=== PATIENT | male | born 1980 | race Caucasian/White ===

== ENCOUNTER 2020-02-29 | Emergency (ER) | payer OTHER, SELFPAY ==
[2020-02-28 23:55] VITALS: BP 132/91; PULSE 85; RESP 18; TEMP 36.8; O2SAT 97
--- NOTE | ~2020-02-29 | CT_ITS ---
EXAMINATION: CT brain wo con DATE: 02/29/2020 00:47 INDICATION: Headache, nausea and vomiting. TECHNIQUE: Computed tomography (CT) of the head was performed without intravenous contrast. Sagittal and coronal reconstructions were performed. The mA was adjusted according to patient size. Iterative reconstruction technique was employed. The dose-length product was 681.00 mGy-cm. COMPARISON: head CT dated 12/28/2014 FINDINGS: Chronic scarring the left frontal scalp. No acute intracranial hemorrhage, acute infarction or abnorm al extra axial fluid collection. Ventricles are normal and symmetric. No mass/mass effect. Mucosal th ickening in the right ethmoid sinus. The orbits and mastoid air cells are normal. IMPRESSION: 1. No acute intracranial process. Reviewed, dictated and finalized at location A.
--- NOTE | 2020-02-29 00:10 | PC.NURSE ---
Patient mentioned that he had been stuck by a pedro nail several weeks ago. Right hand between 1st and 2nd finger has small scab-no redness or tenderness at site noted. Dr Day made aware
--- NOTE | 2020-02-29 00:25 | ED.HA ---
HPI - Headache General Chief Complaint: Headache Stated Complaint: headache/ n/v/ spasms History of Present Illness HPI Narrative: Patient presents with his small daughter for a headache for 5 days. He gauges it at 10 out of 10. He says he has been vomiting. 2 weeks ago he had a nail stuck between his second and third fingers of the right hand. On today he had several beers according to the nurse. He had an unresponsive episode for EMS. They started him on some glucose. MD elicited complaint: headache Pertinent past history: recent trauma Onset (ago): day(s) Onset description: gradually Location: occipital Severity: severe Related Data Home Medications Medication Instructions Recorded Confirmed No Home Medications 02/29/20 02/29/20 Allergies Allergy/AdvReac Type Severity Reaction Status Date / Time No Known Drug Allergies Allergy Unknown Verified 09/24/19 09:45 Course Reevaluation(s) Reevaluation #1: Went in to check on the patient. His daughter is awake. He said the medications have not helped his headache at all. I told him I was concerned about possible tetanus, and that he would have to find placement for his daughter to be admitted to the hospital. Date: 02/29/20 Time: 01:25 Consultations Consultation #1: Called [facility] access line and talk to the ICU attending. They will call back with the possibility of bed placement. Date: 02/29/20 Time: 02:29 Consultation #2: [facility] access nurse called back and said that Dr. Dean accepts to the ICU. Date: 02/29/20 Time: 04:25 Vital Signs Vital signs: Vital Signs Temperature 98.2 F 02/28/20 23:55 Pulse Rate 85 02/28/20 23:55 Respiratory Rate 18 02/28/20 23:55 Blood Pressure 132/91 H 02/28/20 23:55 Pulse Oximetry 97 02/28/20 23:55 Temperature 98.2 F 02/29/20 05:20 Pulse Rate 58 L 02/29/20 05:20 Respiratory Rate 18 02/29/20 05:20 Blood Pressure 119/68 02/29/20 05:20 Pulse Oximetry 96 02/29/20 05:20 MDM - Headache Lab Data Result diagrams: 02/29/20 00:32 02/29/20 00:32 Labs: Lab Results 02/29/20 02/29/20 02/29/20 Range/Units 00:32 00:32 00:32 WBC 11.1 H (4.5-10.0) K/mm3 RBC 4.77 (4.6-6.20) M/mm3 Hgb 15.9 (14.0-18.0) g/dL Hct 44.8 (42.0-52.0) % MCV 93.9 (80-100) fl MCH 33.3 (26-34) pg MCHC 35.5 (32-36) g/dl RDW 12.3 (11.5-14.5) % Plt Count 263 (150-375) k/mm3 MPV 11.0 H (7.4-10.4) fl Immature Gran % (Auto) 0.5 (0-0.5) % Neut % (Auto) 61.0 (45.5-73.1) % Lymph % (Auto) 24.8 (18.3-44.2) % Preston % (Auto) 9.8 H (2.6-8.5) % Eos % (Auto) 3.4 (0-4.4) % Baso % (Auto) 0.5 (0.2-1.2) % Lymph # (Auto) 2.75 (0.9-3.2) K/mm3 Preston # (Auto) 1.1 H (0.1-0.6) K/mm3 Eos # (Auto) 0.4 H (0-0.3) K/mm3 Baso # (Auto) 0.1 (0.0-0.1) K/mm3 Abs Immat Gran (auto) 0.05 H (0.00-0.031) K/mm3 Absolute Neuts (auto) 6.8 H (1.3-6.7) K/mm3 Absolute Nucleated RBC 0.0 (0.0-0.012) K/mm3 Nucleated RBC % 0.0 (0.0-0.2) % Sodium 134 L (137-145) mmol/L Potassium 4.4 (3.4-5.0) mmol/L Chloride 103 (98-107) mmol/L Carbon Dioxide 23 (22-30) mmol/L Anion Gap 8 (8-16) mmol/L BUN 13 (9-20) mg/dL Creatinine 0.80 (0.7-1.3) mg/dL Estim Creat Clear Calc 138 ml/min Estimated GFR > 60 (59 - ) Glucose 89 (75-110) mg/dL Calcium 8.7 (8.4-10.2) mg/dL Magnesium 1.8 (1.6-2.3) mg/dL Total Bilirubin 0.3 (0.2-1.3) mg/dL AST 32 (17-59) U/L ALT 34 (4-50) U/L Alkaline Phosphatase 55 (38-126) U/L Total Creatine Kinase (55-170) U/L Total Protein 7.0 (6.3-8.2) g/dL Albumin 4.2 (3.5-5.1) g/dL Urine Opiates Screen (Negative) Urine Methadone Screen (Negative) Ur Barbiturates Screen (Negative) Ur Phencyclidine Scrn (Negative) Ur Amphetamine Screen (Negative) U Benzodiazepines Scrn (Negative) Urine Cocaine Screen
[2020-02-29 00:46] LABS: Basophils Absolute Auto 0.1 K/mm3 (0.0-0.1); Basophils Percent Auto 0.5 % (0.2-1.2); Eosinophils Absolute Auto 0.4 K/mm3 (0-0.3); Eosinophils Percent Auto 3.4 % (0-4.4); Hematocrit 44.8 % (42.0-52.0); Hemoglobin 15.9 g/dL (14.0-18.0); Immature Granulocyte Absolute 0.05 K/mm3 (0.00-0.031); Immature Granulocyte Percent A 0.5 % (0-0.5); Lymphocytes Absolute Auto 2.75 K/mm3 (0.9-3.2); Lymphocytes Percent Auto 24.8 % (18.3-44.2); Mean Corpuscular HGB Conc 35.5 g/dl (32-36); Mean Corpuscular Hemoglobin 33.3 pg (26-34); Mean Corpuscular Volume 93.9 fl (80-100); Monocytes Absolute Auto 1.1 K/mm3 (0.1-0.6); Monocytes Percent Auto 9.8 % (2.6-8.5); Neutrophils Absolute Auto 6.8 K/mm3 (1.3-6.7); Platelet Count Result 263 k/mm3 (150-375); Red Blood Count 4.77 M/mm3 (4.6-6.20); Red Cell Distribution Width 12.3 % (11.5-14.5); White Blood Count 11.1 K/mm3 (4.5-10.0)
[2020-02-29] MEDS: SODIUM CHLORIDE 0.9% IV 1,000 ML 999 ML IV CONT ×2 (00:46→02:10)
[2020-02-29] MEDS: METOCLOPRAMIDE HCL INJ 10 MG/2 ML VIAL IV PUSH (00:46)
[2020-02-29] MEDS: diphenhydrAMINE HCl INJ 50 MG/ML VIAL 25 MG IV PUSH (00:53)
[2020-02-29] MEDS: TETANUS,DIPHTHERIA,AC PERTUSSIS ADULT (0.5 ML) BOOSTRIX IM (00:55)
[2020-02-29 00:56] VITALS: BP 142/99; PULSE 79; RESP 17; O2SAT 100
[2020-02-29 00:58] LABS: Alanine Aminotransferase 34 U/L (4-50); Albumin Level 4.2 g/dL (3.5-5.1); Alkaline Phosphatase 55 U/L (38-126); Anion Gap 8 mmol/L (8-16); Aspartate Amino Transferase 32 U/L (17-59); Bilirubin,Total 0.3 mg/dL (0.2-1.3); Blood Urea Nitrogen 13 mg/dL (9-20); Calcium 8.7 mg/dL (8.4-10.2); Carbon Dioxide 23 mmol/L (22-30); Chloride 103 mmol/L (98-107); Estimated CRCL calculation 138 ml/min; Estimated Glomerular Filt Rate > 60; Glucose 89 mg/dL (75-110); Magnesium 1.8 mg/dL (1.6-2.3); Potassium 4.4 mmol/L (3.4-5.0); Sodium 134 mmol/L (137-145)
[2020-02-29 01:01] LABS: Ethanol < 10 mg/dL (<10)
[2020-02-29] MEDS: methocarbamoL 750 MG TABLET PO (02:08)
[2020-02-29] MEDS: KETOROLAC 15 MG/ML VIAL (*BKC) IV PUSH (02:10)
[2020-02-29 02:16] LABS: Creatine Kinase 65 U/L (55-170)
[2020-02-29 02:50] LABS: Amphetamine Screen Urine Negative (Negative); Barbiturate Screen Urine Negative (Negative); Benzodiazepines Screen Urine Negative (Negative); Cannabinoid Screen Urine Negative (Negative); Cocaine Screen Urine Negative (Negative); Methadone Screen Urine Negative (Negative); Opiate Screen Urine Negative (Negative); Phencyclidine Screen Urine Negative (Negative)
[2020-02-29 03:00] VITALS: BP 114/79; PULSE 63; RESP 16; O2SAT 97
[2020-02-29 04:00] VITALS: BP 106/67; PULSE 62; RESP 14; O2SAT 96
--- NOTE | 2020-02-29 04:08 | PC.NURSE ---
Spoke with Kandace at transfer center
[2020-02-29 05:20] VITALS: BP 119/68; PULSE 58; RESP 18; TEMP 36.8; O2SAT 96
== END 2020-02-29 05:25 | disposition short-term general hospital (02) ==
PROVIDERS: Emergency Provider Emergency Medicine
DX: A35 Other tetanus (principal); R51 Headache; M62.838 Other muscle spasm; Z23 Encounter for immunization
CPT/HCPCS: 36415; 70450; 80053; 80307; 82550; 83735; 85025; 86648; 86774; 90471; 90715; 96361; 96365; 96375; 99285; A9270; J1200; J1885; J2540; J2765; J7030

== ENCOUNTER 2020-03-06 09:21 | Emergency (ER) | payer OTHER, SELFPAY ==
--- NOTE | ~2020-03-06 | XR_ITS ---
EXAMINATION: XR chest 1V portable DATE: 03/06/2020 10:40 INDICATION: Shortness of breath. TECHNIQUE: A single frontal view of the chest was obtained. COMPARISON: Chest 2 views 10/04/2016, CT abdomen and pelvis 09/17/2015 FINDINGS: The chest demonstrates clear lungs without pneumonia, pleural effusion, or pneumothorax. Th e heart size is normal. IMPRESSION: 1. No acute cardiopulmonary disease. Reviewed, dictated and finalized at location A.
[2020-03-06 09:31] VITALS: BP 138/93; PULSE 79; RESP 20; TEMP 36.8; O2SAT 97
[2020-03-06 09:41] VITALS: O2SAT 97
--- NOTE | 2020-03-06 10:20 | ECG_ITS ---
Measurements Intervals [place] Rate: 79 P: 6 GA: 139 QRS: 10 QRSD: 106 T: 47 QT: 373 QTc: 430 Interpretive Statements SINUS RHYTHM BASELINE ARTIFACT- III, AVF NORMAL ECG Electronically Signed On 03-06-2020 12:44:27 CDT by Robert Greenfield D.O.
--- NOTE | 2020-03-06 10:36 | ED.SOB ---
HPI - SOB/Dyspnea General Chief Complaint: Shortness of Breath/Dyspnea <Emily Cintron PA-C - Last Filed: 03/06/20 14:32> Stated Complaint: Tetnus Throat swelling SOB <KEELEY Villalpando Last Filed: 03/06/20 14:32> Time Seen by Provider: 03/06/20 10:07 <KEELEY Villalpando Last Filed: 03/06/20 14:32> Source: patient <KEELEY Villalpando Last Filed: 03/06/20 14:32> Mode of arrival: ambulatory <KEELEY Villalpando Last Filed: 03/06/20 14:32> Limitations: no limitations <KEELEY Villalpando Last Filed: 03/06/20 14:32> History of Present Illness HPI Narrative: This is a 39-year-old male that presents the emergency department for shortness of breath. Reports he was recently diagnosed with tetanus infection after sustaining a wound on his right hand. Reports he was in the ICU at [facility] for 1 week. He is mostly having headaches and muscle spasms. Reports over the last couple of days he has started to become short of breath. Reports pain with deep breathing. Denies fever, cough, congestion, or sore throat. <KEELEY Villalpando Last Filed: 03/06/20 14:32> Related Data Home Medications: Home Medications Medication Instructions Recorded Confirmed lorazepam See Rx Instructions .ROUTE .COMPLEX 03/06/20 metronidazole [Flagyl] 500 mg PO Q8H 03/06/20 <KEELEY Villalpando Last Filed: 03/06/20 14:32> Allergies/Adverse Reactions: Allergies Allergy/AdvReac Type Severity Reaction Status Date / Time morphine Allergy Anaphylaxis Verified 03/06/20 09:38 <KEELEY Villalpando Last Filed: 03/06/20 14:32> Review of Systems Review of Systems: Narrative: CONSTITUTIONAL: Denies fever ENT: Denies rhinorrhea, congestion, sore throat CARDIOVASCULAR: Reports chest pain. Denies edema. RESPIRATORY: Reports dyspnea. Denies cough GASTROINTESTINAL: Denies abdominal pain GENITOURINARY: Denies dysuria MUSCULOSKELETAL: Reports myalgia. <Emily Cintron PA-C - Last Filed: 03/06/20 14:32> All systems reviewed & are unremarkable except as noted in HPI and below <Emily Cintron PA-C - Last Filed: 03/06/20 14:32> PMFSH Past Medical History Medical History: Medical History (Updated 03/06/20 @ 14:32 by Emily Cintron PA-C) History of tetanus <Emily Cintron PA-C - Last Filed: 03/06/20 14:32> Surgical History Surgical History: Surgical History (Updated 03/06/20 @ 10:39 by Emily Cintron PA-C) History of appendectomy <Emily Cintron PA-C - Last Filed: 03/06/20 14:32> Social History Social History: Social History (Updated 03/06/20 @ 10:40 by Emily Cintron PA-C) Gender identity (if verbalized by the patient): Male <Emily Cintron PA-C - Last Filed: 03/06/20 14:32> Exam Narrative: Exam Narrative: GENERAL: Well-appearing, well-nourished, and in no acute distress. HEAD: Normocephalic, atraumatic. EYES: PERRLA and EOMI. ENT: Nares clear, no rhinorrhea or epistaxis. Mucous membranes moist. Oropharynx without tonsillar hypertrophy exudate or other lesions. Bilateral TMs pearly cooney non-bulging NECK: Supple. No adenopathy or masses. CHEST: Clear to auscultation. No respiratory distress. No wheezes rales or rhonchi HEART: Regular rate and rhythm. No murmur heard. Normal peripheral pulses. EXTREMITIES: Normal range of motion. No edema. SKIN: Warm, dry, no rash. NEURO: No focal deficits. Alert and oriented x3. CN II-XII grossly intact PSYCH: Normal mood and affect <Emily Cintron PA-C - Last Filed: 03/06/20 14:32> Course Vital Signs Vital signs: Vital Signs Temperature 98.2 F 03/06/20 09:31 Pulse Rate 79 03/06/20 09:31 Respiratory Rate 20 03/06/20 09:31 Blood Pressure 138/93 H 03/06/20 09:31 Pulse Oximetry 97 03/06/20 09:31 Temperature 98.2 F 03/06/20 09:31 Pulse Rate 76 03/06/20 15:36 Respiratory Rate 18 03/06/20 15:36 Blood Pressure 160/88 H 03/06/20 15:36 Pulse Oxim
[2020-03-06 11:40] LABS: Basophils Absolute Auto 0.1 K/mm3 (0.0-0.1); Basophils Percent Auto 0.6 % (0.2-1.2); Eosinophils Absolute Auto 0.6 K/mm3 (0-0.3); Hematocrit 44.5 % (42.0-52.0); Hemoglobin 15.8 g/dL (14.0-18.0); Immature Granulocyte Absolute 0.06 K/mm3 (0.00-0.031); Immature Granulocyte Percent A 0.6 % (0-0.5); Lymphocytes Absolute Auto 2.28 K/mm3 (0.9-3.2); Lymphocytes Percent Auto 24.4 % (18.3-44.2); Mean Corpuscular HGB Conc 35.5 g/dl (32-36); Mean Corpuscular Hemoglobin 34.3 pg (26-34); Mean Corpuscular Volume 96.5 fl (80-100); Mean Platelet Volume 11.5 fl (7.4-10.4); Monocytes Absolute Auto 1.2 K/mm3 (0.1-0.6); Monocytes Percent Auto 13.2 % (2.6-8.5); Neutrophils Absolute Auto 5.1 K/mm3 (1.3-6.7); Neutrophils Percent Auto 55.2 % (45.5-73.1); Platelet Count Result 294 k/mm3 (150-375); Red Blood Count 4.61 M/mm3 (4.6-6.20); Red Cell Distribution Width 12.8 % (11.5-14.5); White Blood Count 9.3 K/mm3 (4.5-10.0)
[2020-03-06 11:53] LABS: Alanine Aminotransferase 124 U/L (4-50); Albumin Level 4.2 g/dL (3.5-5.1); Alkaline Phosphatase 57 U/L (38-126); Anion Gap 8 mmol/L (8-16); Aspartate Amino Transferase 85 U/L (17-59); Bilirubin,Total 0.3 mg/dL (0.2-1.3); Blood Urea Nitrogen 11 mg/dL (9-20); Calcium 8.7 mg/dL (8.4-10.2); Carbon Dioxide 25 mmol/L (22-30); Chloride 104 mmol/L (98-107); Estimated CRCL calculation 112 ml/min; Estimated Glomerular Filt Rate > 60; Glucose 84 mg/dL (75-110); Potassium 4.1 mmol/L (3.4-5.0); Sodium 137 mmol/L (137-145)
[2020-03-06 11:54] LABS: Lactate Dehydrogenase 466 U/L (313-618)
[2020-03-06 11:55] VITALS: BP 141/97; PULSE 73; RESP 16; O2SAT 98
[2020-03-06 12:00] LABS: Lactic Acid Reflex 0.7 mmol/L (0.7-2.1)
[2020-03-06 12:05] LABS: Troponin I < 0.012 ng/mL (0.000-0.034)
[2020-03-06 12:36] LABS: CRP 0.8 mg/dL (<1.0)
[2020-03-06 12:47] LABS: Partial Thromboplastin Time 25.3 SECONDS (22.3-36.8)
[2020-03-06 12:52] LABS: D Dimer 0.27 ug/mL (<0.48)
--- NOTE | 2020-03-06 13:44 | PC.NURSE ---
pt dwain ambulating halls well without resp distress. o2 sat remained 96% during walk
[2020-03-06 15:36] VITALS: BP 160/88; PULSE 76; RESP 18; O2SAT 97
[2020-03-06 22:23] LABS: SARS-CoV-2 RNA PCR Negative
== END 2020-03-06 15:35 | disposition home or self-care (01) ==
PROVIDERS: Physician Assistant; Emergency Provider General Practice
DX: R06.00 Dyspnea, unspecified (principal); Z20.828 Contact with and (suspected) exposure to other viral communicable diseases
CPT/HCPCS: 36415; 71045; 80053; 82728; 83605; 83615; 84484; 85025; 85380; 85610; 85730; 86140; 87635; 93005; 99284; C9803; U0003

== ENCOUNTER 2022-03-28 16:50 | Emergency (ER) | payer OTHER, SELFPAY ==
--- NOTE | 2022-03-28 17:00 | ED.EYEPROB ---
HPI - Eye Problem General Chief complaint: Eye Problems Stated complaint: Lt Eye Irritation Time Seen by Provider: 03/28/22 17:00 Source: patient, RN notes reviewed and old records reviewed Mode of arrival: ambulatory Limitations: no limitations History of Present Illness HPI Narrative: 41-year-old male presents to the [facility] with complaints of left eye pain since Sunday night. Reports that he thought he got something in his eye at the [facility] Sunday. Woke up Sunday with it swollen, irritated and painful. Sunday developed halos, decreased depth perception. today is lost vision in the left eye. Cannot decipher between dark and light but states that is it. Has no depth perception. No hyphema noted, patient is PERRLA. Conjunctive a red, inflamed. No discharge noted. Related Data Home Medications Medication Instructions Recorded Confirmed No Home Medications 03/28/22 03/28/22 Allergies Allergy/AdvReac Type Severity Reaction Status Date / Time morphine Allergy Anaphylaxis Verified 03/28/22 17:10 Review of Systems Review of Systems: All systems reviewed & are unremarkable except as noted in HPI and below Constitutional: Constitutional: Reports no additional constitutional complaints, Denies chills and Denies fever(s) Eyes: Eyes: Reports as per HPI, Reports change in vision, Denies eye discharge, Reports loss of vision and Reports eye pain ENT: Reports system reviewed and no additional complaints, except as documented Cardiovascular: Cardiovascular: Reports no additional cardiovascular complaints Respiratory: Respiratory: Reports no additional respiratory complaints Gastrointestinal: Gastrointestinal: Reports no additional gastrointestinal complaints Musculoskeletal: Musculoskeletal: Reports no additional musculoskeletal complaints Integumentary/Breasts: Skin/Breast: Reports system reviewed and no additional complaints, except as docu Neurologic: Reports system reviewed and no additional complaints, except as documented Psychiatric: Psychiatric: Reports no additional psychiatric complaints Allergic/Immunologic: Allergic/Immunologic: Reports no additional allergic/immunologic complaints [facility] Past Medical History Medical History History of tetanus Surgical History Surgical History History of appendectomy Social History Social History Gender identity (if verbalized by the patient): Male Comments At the time of my signature, I reviewed and agree with the nursing past medical, surgical, social, and family history. There is no relevant family history pertinent to the patient complaint. Exam Const: General: healthy appearing, no acute distress and alert Nutritional Appearance: well nourished and obese Orientation/consciousness: patient oriented x3 Limitations: no limitations HENMT: Head: normal to inspection Ears: external ears normal, TM's normal bilaterally and EAC's normal Face and sinus: normal facial exam Mouth: Yes Normal oral and palatal mucosa present and Yes lip normal Throat: posterior oropharynx normal and uvula midline Eyes: General: appearance normal, both eyes and all related structures Alignment and Position: alignment normal and position normal Periorbital: periorbital findings abnormal left periorbital swelling (minor) Conjunctivae: conjunctival abnormality left conjunctival injection circumcorneal; without discharge Sclera: scleral abnormality left without foreign bodies and without hemorrhages Cornea: corneas normal Pupils: Equal, round and reactive pupils present EOM: EOMs intact bilaterally Neck: Neck: normal visual inspection, no lymphadenopathy and no meningeal signs Chest: Chest palpation & inspection: normal inspection of the chest Resp: Effort & Inspection: normal respiratory effort an
[2022-03-28 17:04] VITALS: BP 143/94; PULSE 93; RESP 20; TEMP 36.8; O2SAT 98
== END 2022-03-28 17:40 | disposition short-term general hospital (02) ==
PROVIDERS: Emergency Provider Nurse Practitioner
DX: H53.132 Sudden visual loss, left eye (principal)
CPT/HCPCS: 99212; G0463

== ENCOUNTER 2022-04-11 13:46 | Emergency (ER) | payer OTHER, SELFPAY ==
[2022-04-11 13:55] VITALS: BP 145/100; PULSE 96; RESP 20; TEMP 37.2; O2SAT 100
--- NOTE | 2022-04-11 13:55 | ED.GENADULT ---
HPI - General Adult General Chief complaint: Unspecified Stated complaint: POSSIBLE HEAT STROKE Time Seen by Provider: 04/11/22 13:46 Source: patient and RN notes reviewed Mode of arrival: ambulatory Limitations: no limitations History of Present Illness HPI narrative: 41-year-old male comes into the emergency room with trouble walking, trouble talking, generalized body numbness and shortness of breath for 1 hour. Patient denies any medical or surgical history. Patient very slow to give any response when questions are asked Facial symmetry noted. Able to move all 4 extremities but weakness noted throughout. Patient reports that he was working outside on his deck when he was no longer hot. Related Data Home Medications Medication Instructions Recorded Confirmed No Home Medications 03/28/22 04/11/22 Allergies Allergy/AdvReac Type Severity Reaction Status Date / Time morphine Allergy Anaphylaxis Verified 04/11/22 14:17 Review of Systems Review of Systems: All systems reviewed & are unremarkable except as noted in HPI and below Constitutional: Constitutional: Reports as per HPI, Denies chills, Denies fever(s) and Reports weakness Eyes: Eyes: Reports no additional eye complaints ENT: Reports system reviewed and no additional complaints, except as documented Cardiovascular: Cardiovascular: Reports no additional cardiovascular complaints Respiratory: Respiratory: Reports as per HPI and Reports dyspnea Gastrointestinal: Gastrointestinal: Reports no additional gastrointestinal complaints Musculoskeletal: Musculoskeletal: Reports no additional musculoskeletal complaints Integumentary/Breasts: Skin/Breast: Reports system reviewed and no additional complaints, except as docu Neurologic: Reports numbness and Reports weakness (Generalized) Psychiatric: Psychiatric: Reports no additional psychiatric complaints Allergic/Immunologic: Allergic/Immunologic: Reports no additional allergic/immunologic complaints PMFSH Past Medical History Medical History History of tetanus Surgical History Surgical History History of appendectomy Social History Social History Gender identity (if verbalized by the patient): Male Comments At the time of my signature, I reviewed and agree with the nursing past medical, surgical, social, and family history. There is no relevant family history pertinent to the patient complaint. Exam Const: General: no acute distress, alert and ill appearing acutely Nutritional Appearance: well nourished and obese Orientation/consciousness: oriented to person, patient oriented x3 and confusion Limitations: altered mental status HENMT: Head: normal to inspection Ears: external ears normal Eyes: General: appearance normal, both eyes and all related structures Pupils: Equal, round and reactive pupils present Neck: Neck: normal visual inspection, no lymphadenopathy and no meningeal signs Chest: Chest palpation & inspection: normal inspection of the chest Resp: Effort & Inspection: normal respiratory effort and no use of accessory muscles Auscultation: clear to auscultation bilaterally, no crackles, no rales, no rhonchi and no wheezes Cardio: Rate: regular rate Rhythm: regular rhythm Back/Spine/Pelvis: Cervical Spine: normal cervical lordosis Thoracic/Lumbar Spine: thoracic and lumbar spine normal to inspection Skin: General skin exam: normal color Rashes: no rashes Wounds: no wounds Neuro: General: oriented to person, moves all extremities, no meningeal signs and no focal motor deficits Cranial nerves: Yes Equal, round and reactive pupils present Cognition (Neuro): abnormal cognition Speech: Abnormal speech present (Slow to respond, trouble finding words) slurred Gait exam (Neuro): Staggering gait present (Placed
--- NOTE | 2022-04-11 13:56 | ECG_ITS ---
Measurements Intervals [place] Rate: 94 P: 25 SD: 136 QRS: 21 QRSD: 105 T: 63 QT: 340 QTc: 427 Interpretive Statements SINUS RHYTHM WITH SINUS ARRHYTHMIA POSSIBLE LEFT ATRIAL ENLARGEMENT INCOMPLETE RIGHT BUNDLE BRANCH BLOCK BASELINE ARTIFACT- I, II, AVR BORDERLINE ECG COMPARED TO ECG 03/06/2020 09:35:46 SINUS ARRHYTHMIA NOW PRESENT INCOMPLETE RIGHT BUNDLE-BRANCH BLOCK NOW PRESENT Electronically Signed On 04-11-2022 15:07:42 CDT by Robert Greenfield D.O.
== END 2022-04-11 13:52 | disposition short-term general hospital (02) ==
PROVIDERS: Emergency Provider Nurse Practitioner
DX: R20.0 Anesthesia of skin (principal); I45.10 Unspecified right bundle-branch block
CPT/HCPCS: 93005; 99213; 99215; G0463

== ENCOUNTER 2022-04-11 14:10 | Emergency (ER) | payer OTHER, SELFPAY ==
[2022-04-11] VITALS (14 sets, daily range): BP systolic 150–159; BP diastolic 96–111; PULSE 67–101; RESP 14–31; TEMP 36.8; O2SAT 92–100
--- NOTE | ~2022-04-11 | CT_ITS ---
EXAMINATION: CT brain wo con DATE: 04/11/2022 15:03 INDICATION: Dizziness. Blurred vision. TECHNIQUE: Computed tomography (CT) of the head was performed without intravenous contrast. The mA wa s adjusted according to patient size. Iterative reconstruction technique was employed. The dose-lengt h product was 681.00 mGy-cm. COMPARISON: Head CT 02/29/2020 FINDINGS: There is no intracranial hemorrhage, acute infarction, or abnormal intracranial mass lesion . The ventricles are normal in size. There is mild mucosal thickening in the ethmoid sinuses. The mas toid air cells are normal. The orbits are normal. IMPRESSION: 1. Normal brain. Reviewed, dictated and finalized at location A. IMPRESSION: 1. Normal brain.
--- NOTE | ~2022-04-11 | XR_ITS ---
EXAMINATION: XR chest 2V Exam Date/Time: 04/11/2022 15:03 CDT HISTORY: weakness, dizziness, fatigue today Comparison: 03/06/20. RESULT: Right posterior angle excluded from field of view. Lines, tubes, and devices: Left angle blunting. Lungs clear. Lungs and pleura: Clear. Cardiomediastinal silhouette: Stable. Other: No acute osseous or upper abdominal finding. IMPRESSION: Limited field of view, detailed above. Small left effusion versus pleural scarring. Reviewed, dictated and finalized at location K. IMPRESSION: Limited field of view, detailed above. Small left effusion versus pleural scarr ing.
--- NOTE | 2022-04-11 14:18 | ECG_ITS ---
Measurements Intervals [place] Rate: 81 P: 1 PA: 120 QRS: 13 QRSD: 109 T: 53 QT: 367 QTc: 427 Interpretive Statements SINUS RHYTHM INCOMPLETE RIGHT BUNDLE BRANCH BLOCK BORDERLINE ECG COMPARED TO ECG 04/11/2022 13:53:22 NO SIGNIFICANT CHANGES Electronically Signed On 04-11-2022 15:26:59 CDT by Robert Greenfield D.O.
[2022-04-11 14:43] LABS: Alanine Aminotransferase 30 U/L (6-50); Albumin Level 4.8 g/dL (3.5-5.1); Alkaline Phosphatase 60 U/L (38-126); Anion Gap 14 mmol/L (8-16); Aspartate Amino Transferase 31 U/L (17-59); Bilirubin,Total 0.8 mg/dL (0.2-1.3); Blood Urea Nitrogen 19 mg/dL (9-20); Calcium 9.5 mg/dL (8.4-10.2); Carbon Dioxide 20 mmol/L (22-30); Chloride 102 mmol/L (98-107); Estimated Glomerular Filt Rate 44; Glucose 99 mg/dL (65-110); Potassium 3.3 mmol/L (3.4-5.0); Sodium 136 mmol/L (137-145)
[2022-04-11 14:46] LABS: Basophils Percent Auto 0.3 % (0.2-1.2); Eosinophils Absolute Auto 0.3 K/mm3 (0-0.3); Eosinophils Percent Auto 2.4 % (0-4.4); Hematocrit 42.9 % (42.0-52.0); Hemoglobin 15.9 g/dL (14.0-18.0); Immature Granulocyte Absolute 0.05 K/mm3 (0.00-0.031); Immature Granulocyte Percent A 0.4 % (0-0.5); Lymphocytes Absolute Auto 2.78 K/mm3 (0.9-3.2); Lymphocytes Percent Auto 22.2 % (18.3-44.2); Mean Corpuscular HGB Conc 37.1 g/dl (32-36); Mean Corpuscular Volume 97.1 fl (80-100); Mean Platelet Volume 10.7 fl (7.4-10.4); Monocytes Absolute Auto 1.6 K/mm3 (0.1-0.6); Monocytes Percent Auto 12.6 % (2.6-8.5); Neutrophils Absolute Auto 7.8 K/mm3 (1.3-6.7); Neutrophils Percent Auto 62.1 % (45.5-73.1); Platelet Count Result 282 k/mm3 (150-375); Red Blood Count 4.42 M/mm3 (4.6-6.20); Red Cell Distribution Width 12.7 % (11.5-14.5); White Blood Count 12.5 K/mm3 (4.5-10.0)
--- NOTE | 2022-04-11 14:55 | ED.WEAKNESS ---
HPI - Weakness General Chief complaint: Weakness Stated complaint: heat stroke Time Seen by Provider: 04/11/22 14:47 History of Present Illness HPI Narrative: 41-year-old male presents to the emergency room today by EMS for complaints of dizziness, blurred vision and having some speech difficulties. He is actually feeling better now but he originally presented to a local urgent care after working out in the heat all day. He says that he was feeling hot and flushed all over, started feeling very tired and weak and noticed that his vision was getting blurry when he stood up. He has had heat injuries in the past and says that he just stayed out too long today. He was given 1 L of IV fluid by EMS on the way here. At this time he is fully awake alert and oriented and he is speaking normally with no deficits. Related Data Home Medications Medication Instructions Recorded Confirmed No Home Medications 03/28/22 04/11/22 Allergies Allergy/AdvReac Type Severity Reaction Status Date / Time morphine Allergy Anaphylaxis Verified 04/11/22 14:17 Review of Systems Review of Systems: CONSTITUTIONAL: Denies fever, chills, or sweats. Reports fatigue, generalized weakness EYES: blurred vision, improved now ENT: Denies rhinorrhea, congestion, sore throat, or otalgia. CARDIOVASCULAR: Denies chest pain, palpitations, or edema. RESPIRATORY: Denies cough or dyspnea. GASTROINTESTINAL: Denies abdominal pain, nausea, vomiting, or diarrhea. GENITOURINARY: Denies dysuria or hematuria. SKIN: Denies rash or itching. MUSCULOSKELETAL: Denies back pain, joint pain, or myalgia. NEUROLOGIC: as per HPI PSYCHIATRIC: Denies anxiety or depression. PMFSH Past Medical History Medical History History of tetanus Surgical History Surgical History History of appendectomy Social History Social History Gender identity (if verbalized by the patient): Male Exam Narrative: GENERAL: Well-appearing, well-nourished, and in no acute distress. HEAD: Normocephalic, atraumatic. EYES: PERRLA and EOMI. NECK: Supple. No adenopathy or masses. No carotid bruits or JVD CHEST: Clear to auscultation. No respiratory distress. No wheezes rales or rhonchi HEART: Regular rate and rhythm. No murmur heard. Normal peripheral pulses. ABDOMEN: Soft, nontender, nondistended, normal active bowel sounds. EXTREMITIES: Normal range of motion. No edema. SKIN: Warm, dry, no rash. NEURO: No focal deficits. Alert and oriented x3. PSYCH: Normal mood and affect. Course Reevaluation(s) Reevaluation #1: Pt reports that he is feeling much better after IV fluids. Date: 04/11/22 Time: 18:30 Vital Signs Vital signs: Vital Signs Temperature 36.8 C 04/11/22 14:12 Pulse Rate 89 04/11/22 14:12 Respiratory Rate 18 04/11/22 14:12 Blood Pressure 151/96 H 04/11/22 14:12 Pulse Oximetry 99 04/11/22 14:12 Oxygen Delivery Room Air 04/11/22 14:12 Temperature 36.8 C 04/11/22 14:12 Pulse Rate 98 04/11/22 16:17 Respiratory Rate 16 04/11/22 16:17 Blood Pressure 158/104 H 04/11/22 16:17 Pulse Oximetry 92 04/11/22 16:17 Oxygen Delivery Room Air 04/11/22 14:12 MDM - Weakness Lab Data Attestation: I reviewed the patient's lab results. Result diagrams: 04/11/22 14:21 04/11/22 14:21 Labs: Lab Results 04/11/22 04/11/22 04/11/22 Range/Units 14:21 14:21 16:18 WBC 12.5 H (4.5-10.0) K/mm3 RBC 4.42 L (4.6-6.20) M/mm3 Hgb 15.9 (14.0-18.0) g/dL Hct 42.9 (42.0-52.0) % MCV 97.1 (80-100) fl MCH 36.0 H (26-34) pg MCHC 37.1 H (32-36) g/dl RDW 12.7 (11.5-14.5) % Plt Count 282 (150-375) k/mm3 MPV 10.7 H (7.4-10.4) fl Immature Gran % (Auto) 0.4 (0-0.5) % Neut % (Auto) 62.1 (45.5-73.1) % Lym
[2022-04-11] MEDS: SODIUM CHLORIDE 0.9% IV 1,000 ML 999 ML IV CONT (15:21)
--- NOTE | 2022-04-11 15:24 | PC.NURSE ---
PT. hasd 1L NS infused via ems
[2022-04-11] MEDS: POTASSIUM CHLORIDE 20 MEQ TABLET PO (15:45)
[2022-04-11 16:49] LABS: Appearance Urine Clear (Clear); Bilirubin Urine Negative (Negative); Blood Urine Negative (Negative); Color Urine Yellow (Yellow); Glucose Urine UA Negative (Negative); Ketones Urine 1+ mg/dL (Negative); Leukocyte Esterase Ur Negative LEU/UL (Negative); Nitrate Urine Negative (Negative); Protein Urine Trace mg/dL (Negative); Specific Grav Ur >= 1.030 (1.001-1.035); Urobilinogen Urine 0.2 mg/dL (<2.0); pH Urine 5.5 (5.0-9.0)
[2022-04-11 17:09] LABS: Add Urine Microscopic? YES; Hyaline Casts Urine 20-29 /lpf; Mucus Urine Rare /lpf; Squamous Epithelial Cell Urine Rare /hpf (Few); WBC Urine 0-3 /hpf
--- NOTE | 2022-04-11 17:48 | PC.NURSE ---
pt. ambulated around ed w/ steady gait
== END 2022-04-11 17:53 | disposition home or self-care (01) ==
PROVIDERS: Emergency Medicine; Emergency Provider Nurse Practitioner Family
DX: T67.5XXA Heat exhaustion, unspecified, initial encounter (principal); X30.XXXA Exposure to excessive natural heat, initial encounter
CPT/HCPCS: 36415; 70450; 71046; 80053; 81001; 85025; 93005; 96360; 99215; 99284; A9270; G0463; J7030

== ENCOUNTER 2022-06-27 17:33 | Emergency (ER) | payer OTHER, SELFPAY ==
--- NOTE | ~2022-06-27 | US_ITS ---
EXAMINATION: US venous doppler [facility] DATE: 06/27/2022 20:37 INDICATION: pain swelling . TECHNIQUE: Grayscale images without and with compression and Doppler images of the left lower extremi ty veins were obtained. COMPARISON: None FINDINGS: The left common femoral vein, profunda femoral vein, femoral vein, popliteal vein, peroneal vein, pos terior tibial veins, gastrocnemius vein, and greater saphenous vein are patent. IMPRESSION: 1. Patent left lower extremity veins. No evidence of deep venous thrombosis. Reviewed, dictated and finalized at location K. ATION RESEARCH ANALYST
--- NOTE | ~2022-06-27 | CT_ITS ---
EXAMINATION: CTA chest PE protocol DATE: 06/27/2022 22:02 INDICATION: chest pain, left leg pain TECHNIQUE: Computed tomography angiography (CTA) of the chest was performed with 100 mL Omnipaque-350 intravenous contrast timed to evaluate the pulmonary arteries. Coronal maximum intensity projection 3D-reconstructions were created by the technologist. The dose-length product (DLP) was 755.54 mGy-cm. Automated exposure control and iterative reconstruction technique were employed. COMPARISON: 09/17/2015. FINDINGS: Lung parenchyma and airways: Dependent atelectasis. Scattered air cysts and mild reticulonodular opac ities as can be seen with bronchiolitis. No pneumothorax. No focal consolidation. Airways are clear. Pleura: Unremarkable. Thoracic inlet, axillae and chest wall: Unremarkable. Minimal bilateral gynecomastia. Thoracic aorta: Normal. Mediastinum: Small hiatal hernia. Mediastinal lymphadenopathy Mild distal esophageal wall edema and s urrounding inflammatory change. Heart and pericardium: Normal. Coronary artery calcifications: . Upper abdomen: Old splenic trauma. Distal esophageal and perigastric lymphadenopathy. Bones: No acute osseous finding. Pulmonary arteries: Study quality: Adequate. No pulmonary emboli detected. IMPRESSION: No CT evidence of acute pulmonary embolus. Respiratory bronchiolitis. Mediastinal, paraesophageal, an d upper esophageal lymphadenopathy Reviewed, dictated and finalized at location K. PAINTER HELPER IMPRESSION: No CT evidence of acute pulmonary embolus. Respiratory bronchiolitis. Mediastin al, paraesophageal, and upper esophageal lymphadenopathy
[2022-06-27 17:46] VITALS: BP 158/92; PULSE 81; RESP 20; TEMP 36.8; O2SAT 96
[2022-06-27 20:38] VITALS: BP 151/99; PULSE 100; RESP 20; O2SAT 94
[2022-06-27 20:46] VITALS: BP 149/98; PULSE 82; RESP 23; O2SAT 95
--- NOTE | 2022-06-27 21:01 | ECG_ITS ---
Measurements Intervals [place] Rate: 65 P: 11 ND: 133 QRS: 42 QRSD: 112 T: 51 QT: 381 QTc: 398 Interpretive Statements SINUS RHYTHM COMPARED TO ECG 04/11/2022 14:15:15 NO SIGNIFICANT CHANGES Electronically Signed On 06-28-2022 15:00:26 CLINIC RECEPTIONIST by Paramjit Lawrence M.D.
[2022-06-27 21:25] LABS: Appearance Urine Clear (Clear); Basophils Absolute Auto 0.1 K/mm3 (0.0-0.1); Basophils Percent Auto 0.5 % (0.2-1.2); Bilirubin Urine Negative (Negative); Blood Urine Negative (Negative); Color Urine Yellow (Yellow); Eosinophils Absolute Auto 0.5 K/mm3 (0-0.3); Eosinophils Percent Auto 4.4 % (0-4.4); Glucose Urine UA Negative (Negative); Hematocrit 45.3 % (42.0-52.0); Hemoglobin 15.5 g/dL (14.0-18.0); Immature Granulocyte Absolute 0.06 K/mm3 (0.00-0.031); Immature Granulocyte Percent A 0.5 % (0-0.5); Ketones Urine Negative (Negative); Leukocyte Esterase Ur Negative LEU/UL (Negative); Lymphocytes Percent Auto 29.2 % (18.3-44.2); Mean Corpuscular HGB Conc 34.2 g/dl (32-36); Mean Corpuscular Hemoglobin 33.5 pg (26-34); Mean Corpuscular Volume 97.8 fl (80-100); Mean Platelet Volume 10.8 fl (7.4-10.4); Monocytes Absolute Auto 1.2 K/mm3 (0.1-0.6); Monocytes Percent Auto 10.5 % (2.6-8.5); Neutrophils Absolute Auto 6.2 K/mm3 (1.3-6.7); Neutrophils Percent Auto 54.9 % (45.5-73.1); Nitrate Urine Negative (Negative); Platelet Count Result 252 k/mm3 (150-375); Protein Urine Negative (Negative); Red Blood Count 4.63 M/mm3 (4.6-6.20); Red Cell Distribution Width 13.1 % (11.5-14.5); Specific Grav Ur 1.025 (1.001-1.035); Urobilinogen Urine 0.2 mg/dL (<2.0); White Blood Count 11.3 K/mm3 (4.5-10.0); pH Urine 5.5 (5.0-9.0)
[2022-06-27 21:26] LABS: Add Urine Microscopic? NO
[2022-06-27 21:35] LABS: Alanine Aminotransferase 33 U/L (6-50); Albumin Level 4.4 g/dL (3.5-5.1); Alkaline Phosphatase 56 U/L (38-126); Anion Gap 6 mmol/L (8-16); Aspartate Amino Transferase 39 U/L (17-59); Bilirubin,Total 0.4 mg/dL (0.2-1.3); Blood Urea Nitrogen 16 mg/dL (9-20); Calcium 9.3 mg/dL (8.4-10.2); Carbon Dioxide 25 mmol/L (22-30); Chloride 105 mmol/L (98-107); Estimated CRCL calculation 121 ml/min; Estimated Glomerular Filt Rate > 60; Glucose 96 mg/dL (65-110); Lipase 242 U/L (23-300); Magnesium 1.8 mg/dL (1.6-2.3); Potassium 4.7 mmol/L (3.4-5.0); Sodium 136 mmol/L (137-145)
[2022-06-27 21:36] LABS: Lactic Acid Reflex 0.8 mmol/L (0.7-2.0)
[2022-06-27 21:38] LABS: INR 0.9; Prothrombin Time 12.1 Seconds (11.1-14.7)
[2022-06-27 21:47] LABS: NT Pro B Type Natriuretic Pept 60 pg/mL (5-100); Troponin I < 0.012 ng/mL (0.000-0.034)
[2022-06-27 22:11] LABS: Procalcitonin 0.1 ng/mL
[2022-06-27 22:24] VITALS: BP 115/78; PULSE 83; RESP 19; O2SAT 98
--- NOTE | 2022-06-27 22:30 | ED.GENADULT ---
HPI - General Adult General Chief complaint: Extremity Problem,Nontraumatic Stated complaint: LLE pain/swelling Time Seen by Provider: 06/27/22 20:54 History of Present Illness HPI narrative: Patient is a 41-year-old gentleman who presents emerged part with chief complaint of left calf pain and also chest pain. The patient states for the last several days he had pain in his left calf patient reports it feels like a cramping pain and feels as though it swollen the patient also reports he had a sharp sensation in his chest reports is worse with inspiration and worse with movement. Patient reports no prior history of clotting disorder no prior history of thromboembolic event reports no long travel, denies immobilization of the left lower extremity. Related Data Home Medications Medication Instructions Recorded Confirmed No Home Medications 03/28/22 04/11/22 Allergies Allergy/AdvReac Type Severity Reaction Status Date / Time morphine Allergy Anaphylaxis Verified 06/27/22 20:33 Review of Systems Review of Systems: A 10 system review of systems was completed on the patient and is negative except for what is stated in the HPI. Nursing and ancillary documentation was reviewed. [facility] Past Medical History Medical History History of tetanus Surgical History Surgical History History of appendectomy Social History Social History Gender identity (if verbalized by the patient): Male Exam Narrative: GENERAL: Well-appearing, well-nourished, and in no acute distress. HEAD: Normocephalic, atraumatic. EYES: PERRLA and EOMI. ENT: Nares clear, no rhinorrhea or epistaxis. Mucous membranes moist. NECK: Supple. CHEST: Clear to auscultation. No respiratory distress. HEART: Regular rate and rhythm. No murmur heard. Normal peripheral pulses. ABDOMEN: Soft, nontender, nondistended, normal active bowel sounds. EXTREMITIES: Normal range of motion. No edema. SKIN: Warm, dry, no rash. NEURO: No focal deficits. Alert and oriented x3. PSYCH: Normal mood and affect. Course Course Emergency Course: Ultrasound of the left lower extremity showed no evidence of DVT CTA of the chest showed no evidence of pulmonary embolism EKG is sinus rhythm rate of [address] elevation or ST depression Troponin was negative Vital Signs Vital signs: Vital Signs Temperature 36.8 C 06/27/22 17:46 Pulse Rate 81 06/27/22 17:46 Respiratory Rate 20 06/27/22 17:46 Blood Pressure 158/92 H 06/27/22 17:46 Pulse Oximetry 96 06/27/22 17:46 Oxygen Delivery Room Air 06/27/22 17:46 Temperature 36.8 C 06/27/22 17:46 Pulse Rate 83 06/27/22 22:24 Respiratory Rate 19 06/27/22 22:24 Blood Pressure 115/78 06/27/22 22:24 Pulse Oximetry 98 06/27/22 22:24 Oxygen Delivery Room Air 06/27/22 17:46 Medical Decision Making Vital Signs Vital Signs: Vital Signs Temperature 36.8 C 06/27/22 17:46 Pulse Rate 81 06/27/22 17:46 Respiratory Rate 20 06/27/22 17:46 Blood Pressure 158/92 H 06/27/22 17:46 Pulse Oximetry 96 06/27/22 17:46 Oxygen Delivery Room Air 06/27/22 17:46 Temperature 36.8 C 06/27/22 17:46 Pulse Rate 83 06/27/22 22:24 Respiratory Rate 19 06/27/22 22:24 Blood Pressure 115/78 06/27/22 22:24 Pulse Oximetry 98 06/27/22 22:24 Oxygen Delivery Room Air 06/27/22 17:46 Lab Data 06/27/22 21:16 06/27/22 21:16 Labs: Lab Results 06/27/22 06/27/22 06/27/22 Range/Units 21:16 21:16 21:16 WBC 11.3 H (4.5-10.0) K/mm3 RBC 4.63 (4.6-6.20) M/mm3 Hgb 15.5 (14.0-18.0) g/dL Hct 45.3 (42.0-52.0) % MCV 97.8 (80-100) fl MCH 33.5 (26-34) pg MCHC 34.2 (32-36) g/dl RDW 13.1 (11.5-14.5) % Plt Count 252 (150-375) k/mm3
[2022-06-27 22:55] VITALS: BP 130/84; RESP 18
== END 2022-06-27 22:56 | disposition home or self-care (01) ==
PROVIDERS: Emergency Provider Emergency Medicine
DX: M79.662 Pain in left lower leg (principal); R07.9 Chest pain, unspecified
CPT/HCPCS: 36415; 71275; 80053; 81003; 83605; 83690; 83735; 83880; 84145; 84484; 85025; 85610; 85730; 93005; 93971; 99284; Q9967